=== PATIENT | male | born 1980 | race Caucasian/White ===

== ENCOUNTER 2017-03-04 14:41 | Emergency (ER) | payer MEDICAID ==
[2017-03-04 14:46] VITALS: BP 139/68; PULSE 88; RESP 14; TEMP 98.4; O2SAT 96
[2017-03-04] MEDS ORDERED: TDAP ADULT 0.5 ML INJ (BOOSTRIX) IM ONE (14:58)
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
== END 2017-03-04 15:23 | disposition home or self-care (01) ==
DX: S60.511A Abrasion of right hand, initial encounter (principal); V18.0XXA Pedal cycle driver injured in noncollision transport accident in nontraffic accident, initial encounter; Y92.009 Unspecified place in unspecified non-institutional (private) residence as the place of occurrence of the external cause; Y93.55 Activity, bike riding